=== PATIENT | female | born 1965 | race Caucasian/White ===

== ENCOUNTER 2021-02-12 07:21 | Outpatient (CLI) | payer OTHER, SELFPAY ==
--- NOTE | ~2021-02-12 | MM_ITS ---
EXAMINATION: MM screening deven BI w nicki HISTORY: Screening TECHNIQUE: Craniocaudal and mediolateral oblique 3-D tomosynthesis images were obtained and synthetic 2-D images were generated. CAD analysis was submitted and interpreted. COMPARISON: Comparison to multiple prior studies sequentially, with oldest reviewed study dated 2013. BREAST PARENCHYMAL COMPOSITION: The breasts are heterogenously dense, which may obscure small masses. FINDINGS: There is focal asymmetry laterally in the right breast on CC view. The left breast is stabl e without evidence for malignancy. IMPRESSION: 1. New developing focal asymmetry lateral aspect of the right breast on CC view. 2. Additional mammographic views and possible breast ultrasound are recommended. BI-RADS Category 0: Incomplete: Needs additional imaging evaluation. Reviewed, dictated and finalized at location A. IMPRESSION: 1. New developing focal asymmetry lateral aspect of the right breast on CC view . 2. Additional mammographic views and possible breast ultrasound are recommended . BI-RADS Category 0: Incomplete: Needs additional imaging evaluation.
== END 2021-02-12 07:22 | disposition home or self-care (01) ==
LOC: ANHIMG 07:26
PROVIDERS: PCP Family Medicine; Visit Provider Obstetrics & Gynecology
DX: Z12.31 Encounter for screening mammogram for malignant neoplasm of breast (principal); R92.8 Other abnormal and inconclusive findings on diagnostic imaging of breast
CPT/HCPCS: 77063; 77067

== ENCOUNTER 2021-03-05 11:54 | Outpatient (CLI) | payer OTHER, SELFPAY ==
--- NOTE | ~2021-03-05 | MMUS_ITS ---
EXAMINATION: MM diagnostic mammo unilat RT, US breast RT complete HISTORY: New developing focal asymmetry in the lateral right breast on screening craniocaudal view of 02/2021 TECHNIQUE: Additional 3-D tomosynthesis images of the right breast were performed and synthetic 2-D i mages were generated. CAD analysis was submitted and interpreted. High resolution complete right [address] st ultrasound was performed. COMPARISON: 02/12/2021 bilateral digital screening mammogram FINDINGS: MAMMOGRAPHIC FINDINGS: No reproducible suspicious mass, architectural distortion, malignant constipation, skin thickening or retraction is evident. The heterogeneously dense stroma however may obscure a mass. Complete right breast ultrasound examina tion was performed. ULTRASOUND: Right breast 9:00 near nipple: 3.5 x 4 mm sonolucency with through transmission posterior enhancement consistent with cyst. No suspicious mass or shadowing is detected in the right breast. IMPRESSION: 1. Benign finding 2. Routine mammographic screening is recommended. BI-RADS Category 2: Benign finding(s). Reviewed, dictated and finalized at location A. IMPRESSION: 1. Benign finding 2. Routine mammographic screening is recommended. BI-RADS Category 2: Benign finding(s).
== END 2021-03-05 11:55 | disposition home or self-care (01) ==
PROVIDERS: PCP Family Medicine; Visit Provider Obstetrics & Gynecology
DX: R92.8 Other abnormal and inconclusive findings on diagnostic imaging of breast (principal)
CPT/HCPCS: 76641; 77065

== ENCOUNTER → 2022-12-16 10:28 | Outpatient (CLI) | payer OTHER, SELFPAY ==
--- NOTE | ~2022-12-16 | MM_ITS ---
EXAMINATION: MM screening [facility] BI w nicki HISTORY: Screening mammogram TECHNIQUE: Craniocaudal and mediolateral oblique 3-D tomosynthesis images were obtained and synthetic 2-D images were generated. CAD analysis was submitted and interpreted. COMPARISON: 03/05/2021, 02/12/2021, 04/09/2019 BREAST PARENCHYMAL COMPOSITION: The breasts are heterogeneously dense, which may obscure small masses . FINDINGS: No suspicious mass, calcification, or architectural distortion are identified in either jasmin ast to suggest malignancy. There has been no suspicious interval change. IMPRESSION: 1. No mammographic evidence of malignancy. 2. Recommend routine screening mammography in one year. BI-RADS Category 1: Negative Reviewed, dictated and finalized at location A. RS AND EMULSIFIERS SUPERVISOR
== END ==
PROVIDERS: PCP Family Medicine; Visit Provider Obstetrics & Gynecology
DX: Z12.31 Encounter for screening mammogram for malignant neoplasm of breast (principal)
CPT/HCPCS: 77063; 77067

== ENCOUNTER 2025-06-01 12:45 | Outpatient (CLI) | payer BC, SELFPAY ==
--- OUTSIDE RECORDS SUMMARY | 2025-06-01 12:56 | XMS_ITS | Encounter Summary ---
Author Organization [facility] Address [facility] [place] [address] Care Team Providers Care Construction Site Manager Name Role Phone Ifeoma Christensen OFFSET PLATEMAKER Primary Care Provider [phone]- [phone] Encounter Details Date Type Department Care Team (Latest Contact Info) Description 12/16/2024 [email or web address] Message Enc [facility] [address] [place], [place] [id number] [facility] Provider Diabetic Eye Screening Social History Tobacco Use Types Packs/Day Years Used Date Smoking Tobacco: Never Passive Smoke Exposure: Never Smokeless Tobacco: Never Alcohol Use Standard Drinks/Week Comments Yes 3.3 (1 standard drink = 0.6 oz p ure alcohol) once a month with friends AUDIT-C Answer Date Recorded Frequency of Alcohol Consumption Monthly or less 02/09/2019 Average Number of Drinks 1 or 2 019 Frequency of Binge Drinking Never 10/2018 PHQ-2 Answer Date Recorded Patient Health Questionnaire-2 Score 0 04/15/2024 Comments No Sex and Gender Information Value Date Recorded Sex Assigned at Female 02/09/2019 8:56 AM CDT Legal Sex Female 6:21 PM CDT Gender Identity Female 02/09/2019 8:56 AM CDT Sexual Orientation Straight 02/09/2019 8: 56 AM CDT documented as of this encounter Plan of Treatment Upcoming Encounters Date Type Department Care Team (Late st Contact Info) Description 07/28/2025 8:20 AM CDT Laboratory Only [facility] [address] [facility] [address] [place] [address] Ifeoma Christensen NP [address] [facility] [address] [place] [address] 08/04/2025 8:00 AM CDT Office Visit [facility] Medical [facility] [place] [address] [place] [address] Ifeoma Christensen NP [address] [facility] [address] [place] [address] documented as of this encounter Visit Diagnoses Not on filedocumented in this encounter Care Teams Construction Site Manager Relationship Specialty Start Date End Date Ifeoma Christensen NP [address] [place] [address] PCP - General NURSE PRACTITIONER 04/12/24 documented as of this encounter
--- OUTSIDE RECORDS SUMMARY | 2025-06-01 12:56 | XMS_ITS | Encounter Summary ---
Author Organization [facility] Address [address] [place] [address] Care Team Providers Care Sales Assistant Displays Name Role Phone Ifeoma Christensen REAR LOAD TRUCK DRIVER Primary Care Provider Encounter Details Date Type Department Care Team (Latest Contact Info) Description 06/07/2024 [employer] Message Enc [facility] Medical [facility] [place] [address] [place] [address] Ifeoma Christensen NP [address] [place] [address] painful ingrown big toenail Social History Tobacco Use Types Packs/Day Years [...] AM CDT documented as of this encounter Progress Notes * Gavin Bass - 06/08/2024 10:17 AM CDT Called patient and LVM to schedule acute visit either in person or virtual for abscess. * Gavin Bass - 06/08/2024 10:17 AM CDTFrom: Genet Hogue To: Ifeoma Christensen Sent: 06/07/2024 3:12 PM CDT Subject: painful ingrown big toenail Hello Dr. Christensen, I am prone to minor ingrown toenails in my right big toe. On one other occasion it got sore and swollen enough to require a prescription ointment from my previous PCP. I have one now and the home remedies are not curing it. It is red, swollen, and has some pus. Can you please prescribe an antibiotic? I am happy to pay a co-pay and/or provide a photo if needed. Please let me know. Thank you, Genet Hogue documented in this encounter Plan of Treatment Upcoming Encounters Date Type Department Care Team (Late st Contact Info) Description 07/28/2025 8:20 AM CDT Laboratory Only [facility] Medical [facility] [place] [id number] [facility] [address] [place] [address] Ifeoma Christensen, REAR LOAD TRUCK DRIVER [address] [facility] [address] [place] [address] 08/04/2025 8:00 AM CDT Office Visit [facility] [place] [address] [place] [address] Ifeoma Christensen, REAR LOAD TRUCK DRIVER [address] [facility] [address] [place] [address] documented as of this encounter Visit Diagnoses Not on filedocumented in this encounter Additional Health Concerns Infection Onset Date Last Indicated Resolved Time COVID-19 Rule Out 10/17/2024 10/17/2024 10/19/2024 2:33 PM FIRE APPARATUS SPRINKLER INSPECTOR documented as of this encounter Care Teams Sales Assistant Displays Relationship Specialty Start Date End Date Ifeoma Christensen, REAR LOAD TRUCK DRIVER [address] [facility] [address] [place] [address] PCP - General NURSE PRACTITIONER 04/12/24 documented as of this encounter
--- OUTSIDE RECORDS SUMMARY | 2025-06-01 12:56 | XMS_ITS | Encounter Summary ---
Author Organization [facility] Address [facility] [place] [address] Care Team Providers Care Laborer Cutting Tool Name Role Phone Ifeoma Christensen APPLICATION ADMINISTRATOR Primary Care Provider +[phone]- [phone] Encounter Details Date Type Department Care Team (Latest Contact Info) Description 03/15/2025 [employer] Message Enc [facility] Medical [facility] [place] [address] [place] [address] Ifeoma Christensen APPLICATION ADMINISTRATOR [address] [place], [place] [id number] blood pressure medicine Social History Tobacco Use Types Packs/Day Years [...] 2 019 Frequency of Binge Drinking Never 050 10/2018 PHQ-2 Answer Date Recorded Patient Health Questionnaire-2 Score 0 01/27/2025 Comments No Sex and Gender Information Value Date Recorded Sex Assigned at Female 02/09/2019 8:56 AM CDT Legal Sex Female 6:21 PM CDT Gender Identity Female 02/09/2019 8:56 AM CDT Sexual Orientation Straight 02/09/2019 8: 56 AM CDT documented as of this encounter Plan of Treatment Upcoming Encounters Date Type Department Care Team ( Contact Info) Description 07/28/2025 8:20 AM CDT Laboratory Only [facility] [place] [address] [place] [address] Ifeoma Christensen, APPLICATION ADMINISTRATOR [address] [facility] [address] [place] [address] 08/04/2025 8:00 AM CDT Office Visit [facility] Medical [facility] - [place] [address] [place] [address] Ifeoma Christensen NP [address] [facility] [address] [place] [address] documented as of this encounter Visit Diagnoses Not on filedocumented in this encounter Additional Health Concerns Assessment Noted Time PHQ-9 Depression Total Score: 2 01/28/20 25 8:16 AM CDT documented as of this encounter Care Teams Laborer Cutting Tool Relationship Specialty Start Date End Date Ifeoma Christensen NP [address] [place] [address] PCP - General NURSE PRACTITIONER 04/12/24 documented as of this encounter
--- OUTSIDE RECORDS SUMMARY | 2025-06-01 12:56 | XMS_ITS | Encounter Summary ---
Author Organization [facility] Address [facility] [place] [address] Care Team Providers Care Director Of Assisted Living Name Role Phone Ifeoma Christensen BEAUTY PARLOR CLEANER Primary Care Provider Encounter Details Date Type Department Care Team (Latest Contact Info) Description 01/05/2025 [employer]hart Message Enc [facility] Medical [facility] - [place] [address] [place] [address] Ifeoma Christensen NP [address] [place] [address] CPAP sleep study completed Social History Tobacco Use Types Packs/Day Years [...] Description 07/28/2025 8:20 AM CDT Laboratory Only [facility] Medical [facility] - [place] [address] [facility] [address] [place] [address] Ifeoma Christensen NP [address] [facility] [address] [place] [address] 08/04/2025 8:00 AM CDT Office Visit [facility] Medical [facility] - [place] [address] [facility] [address] [place] [address] Ifeoma Christensen NP [address] [facility] [address] [place] [address] documented as of this encounter Visit Diagnoses Not on filedocumented in this encounter Care Teams Director Of Assisted Living Relationship Specialty Start Date End Date Ifeoma Christensen NP [address] [facility] [address] [place] [address] PCP - General NURSE PRACTITIONER 04/12/24 documented as of this encounter
--- OUTSIDE RECORDS SUMMARY | 2025-06-01 12:56 | XMS_ITS | Encounter Summary ---
Author Organization [employer] Address [address] [place] [address] Care Team Providers Care Solutions Consultant Name Role Phone Unavailable Primary Care Provider Unavailabl e Encounter Details Date Type Department Care Team (Latest Contact Info) Description 11/17/2002 Outpatient Historical HIS [facility] KRYSTLE Lewis, William Leach MD [address] [facility] [address] [place] [address] SCREENING MAMM-MAILG NEOPL-OTHER (Primary Dx) Social History Tobacco Use Types Packs/Day Years Used Date Smoking Tobacco: Never Assessed Comments Unknown Sex and Gender Information Value Date Recorded Sex Assigned at Not on file Legal Sex Female 4:55 AM MEDICAL AUDITOR Gender Identity Not on file Sexual Orientation Not on file documented as of this encounter Plan of Treatment Not on file documented as of this encounter Visit Diagnoses Diagnosis Other screening mammogram- Primary documented in this encounter
--- OUTSIDE RECORDS SUMMARY | 2025-06-01 12:56 | XMS_ITS | Encounter Summary ---
Author Organization [facility] Address [facility] [place] [address] Care Team Providers Care Patient Safety Manager Name Role Phone Ifeoma Christensen [employer]ORTS MARKET[employer] INTERNS[employer]IP Primary Care Provider Encounter Details Date Type Department Care Team (Latest Contact Info) Description 08/23/2024 Kadmon[employer] Message Enc [facility] Medical [facility] Mult[facility] - [place] [address] [place] [address] Ifeoma Christensen [employer] [address] [place], [place] [id number] Fasting blood glucose numbers Social History Tobacco Use Types Packs/Day Years [...] Description 07/28/2025 8:20 AM CDT Laboratory Only [facility] Medical [facility] - [place] [address] [place] [address] Ifeoma Christensen, [employer] [address] [facility] [address] [place] [address] 08/04/2025 8:00 AM CDT Office Visit [facility] Medical [facility] Care - [place] [address] [place] [address] Ifeoma Christensen NP [address] [facility] [address] [place] [address] documented as of this encounter Visit Diagnoses Not on filedocumented in this encounter Additional Health Concerns Infection Onset Date Last Indicated Resolved Time COVID-19 Rule Out 10/17/2024 10/17/2024 10/19/2024 2:33 PM COLLECTIONS PROFESSIONAL documented as of this encounter Care Teams Patient Safety Manager Relationship Specialty Start Date End Date Ifeoma Christensen NP [address] [facility] [address] [place] [address] PCP - General NURSE PRACTITIONER 04/12/24 documented as of this encounter
--- OUTSIDE RECORDS SUMMARY | 2025-06-01 12:56 | XMS_ITS | Encounter Summary ---
Author Organization [facility] Address [facility] [place] [address] Care Team Providers Care Fire Safety Inspector Name Role Phone Ifeoma Christensen KILN TRANSFER OPERATOR Primary Care Provider Encounter Details Date Type Department Care Team (Latest Contact Info) Description 04/26/2024 [employer] Message Enc [facility] Medical Group Mult[facility]pecialty Care - [place] [address] [place] [address] Ifeoma Christensen KILN TRANSFER OPERATOR [address] [place] [address] Nick Social History Tobacco Use Types Packs/Day Years [...] Description 07/28/2025 8:20 AM CDT Laboratory Only [facility] Medical [facility] - [place] [address] [place] [address] Ifeoma Christensen, KILN TRANSFER OPERATOR [address] [facility] [address] [place] [address] 08/04/2025 8:00 AM CDT Office Visit [facility] Medical [facility] - [place] [address] [place] [address] Ifeoma Christensen NP [address] [facility] [address] [place] [address] documented as of this encounter Visit Diagnoses Not on filedocumented in this encounter Additional Health Concerns Infection Onset Date Last Indicated Resolved Time COVID-19 Rule Out 10/17/2024 10/17/2024 10/19/2024 2:33 PM COMPONENT ASSEMBLER SUPERVISOR documented as of this encounter Care Teams Fire Safety Inspector Relationship Specialty Start Date End Date Ifeoma Christensen NP [address] [facility] [address] [place] [address] PCP - General NURSE PRACTITIONER 04/12/24 documented as of this encounter
--- OUTSIDE RECORDS SUMMARY | 2025-06-01 12:56 | XMS_ITS | Encounter Summary ---
Author Organization [facility] Address [facility] [place] [address] Care Team Providers Care Cooling Room Attendant Name Role Phone Ifeoma Christensen PATIENT RESOURCE SPECIALIST Primary Care Provider Encounter Details Date Type Department Care Team (Late st Contact Info) Description 08/05/2024 Ar[employer] Message Enc [facility] Medical Group Mult[facility]pec[facility] Care - [place] [address] [place] [address] Ifeoma Christensen NP [address] [place], [place] [id number] 2 questions Social History Tobacco Use Types Packs/Day Years [...] Description 07/28/2025 8:20 AM CDT Laboratory Only [facility] Medical [facility] - [place] [address] [facility] [address] [place] [address] Ifeoma Christensen PATIENT RESOURCE SPECIALIST [address] [facility] [address] [place] [address] 08/04/2025 8:00 AM CDT Office Visit [facility] Medical [facility] - [place] [address] [facility] [address] [place] [address] Ifeoma Christensen NP [address] [facility] [address] [place] [address] documented as of this encounter Visit Diagnoses Not on filedocumented in this encounter Additional Health Concerns Infection Onset Date Last Indicated Resolved Time COVID-19 Rule Out 10/17/2024 10/17/2024 10/19/2024 2:33 PM STRATEGIC ALLIANCES MANAGER documented as of this encounter Care Teams Cooling Room Attendant Relationship Specialty Start Date End Date Ifeoma Christensen NP [address] [facility] [address] [place] [address] PCP - General NURSE PRACTITIONER 04/12/24 documented as of this encounter
--- OUTSIDE RECORDS SUMMARY | 2025-06-01 12:56 | XMS_ITS | Clinical Summary ---
Author Organization [facility] Address [address] [facility] Attn: Epic Prelude ADT MICHAEL OROZCO [address] Care Team Providers Care Senior Technical Architect Name Role Phone Unavailable Primary Care Provider Unavailabl e Social History Tobacco Use Types Packs/Day Years Used Date Smoking Tobacco: Never Assessed Comments Unknown Sex and Gender Information Value Date Recorded Sex Assigned at Not on file Legal Sex Female 4:55 AM MOBILE PATROL OFFICER Gender Identity Not on file Sexual Orientation Not on file Plan of Treatment Health Maintenance Due Date Last Done Comments DTAP/TDAP/TD VACCINES (1 - Tdap) 1983 HPV/Cotest (21-29) 1985 CERVICAL CANCER SCREENING 1994 HPV/Cotest (30-65) 1994 PAP SMEAR 1994 BREAST CANCER SCREENING 2004 COLORECTAL SCREENING 2009 Colorectal Cancer Screening 2009 FIT-DNA Q 3 years 2009 FIT/FOBT Q 1 year 2009 Flex Sig/CT Colonography Q 5 years 2009 ZOSTER VACCINE (1 of 2) 2014 INFLUENZA VACCINE (#1) 2025 RSV VACCINE (60+ or ) (1 - 1-dose 75+ series) 2039 HEPATITIS B VACCINES Aged Out No long er eligible based on patient's age to complete this topic
--- OUTSIDE RECORDS SUMMARY | 2025-06-01 12:56 | XMS_ITS | Encounter Summary ---
Author Organization [facility] Address [facility] [place] [address] Care Team Providers Care Center Medical Director Name Role Phone Ifeoma Christensen CLINICAL RESEARCH SPECIALIST Primary Care Provider [phone] Encounter Details Date Type Department Care Team (Latest Contact Info) Description 02/09/2025 HomeRunhart Message Enc [facility] Medical Group [facility] - [place] [address] [place] [address] Ifeoma Christensen CLINICAL RESEARCH SPECIALIST [address] [place] [address] CPAP Adjustment Update Social History Tobacco Use Types Packs/Day Years [...] 2 019 Frequency of Binge Drinking Never 0510/2018 PHQ-2 Answer Date Recorded Patient Health Questionnaire-2 [...] Description 07/28/2025 8:20 AM CDT Laboratory Only [facility] [place] [address] [place] [address] Ifeoma Christensen, CLINICAL RESEARCH SPECIALIST [address] [place] [address] 08/04/2025 8:00 AM CDT Office Visit [facility] Medical [facility] Multispecialty Care - [place] [address] [place] [address] Ifeoma Christensen NP [address] [place] [address] documented as of this encounter Visit Diagnoses Not on filedocumented in this encounter Additional Health Concerns Assessment Noted Time PHQ-9 Depression Total Score: 2 01/28/20 25 8:16 AM CDT documented as of this encounter Care Teams Center Medical Director Relationship Specialty Start Date End Date Ifeoma Christensen NP [address] [place] [address] PCP - General NURSE PRACTITIONER 04/12/24 documented as of this encounter
--- OUTSIDE RECORDS SUMMARY | 2025-06-01 12:56 | XMS_ITS | Clinical Summary ---
Author Organization [facility] [address] Address [address] [place] [address] Care Team Providers Care Coal Tram Driver Name Role Phone Ifeoma Christensen NP Primary Care Provider [phone] Allergies Active Allergy Reactions Criticality Noted Date Comments Lisinopril Cough Low 10/29/2016 Dcjlhxe-Ulo-Xbt Reductase Inhibitors Fatigue,Muscle pain Medium 10/29/2016 Medications citalopram (CeleXA) 20 mg tablet Take 1 tablet (20 mg total) by mouth daily Active metFORMIN (GLUCOPHAGE) 1,000 mg tablet Take 1.5 tablets (1,500 mg total) by mouth daily with breakfast Active telmisartan (MICARDIS) 40 mg tablet Take 1 tablet (40 mg total) by mouth daily Active levothyroxine sodium (TIROSINT) 50 mcg capsule Take 1 capsule (50 mcg total) by mouth occ med physician before breakfast Active rosuvastatin (CRESTOR) 5 mg tablet Take 1 tablet (5 mg total) by mouth daily Active hydroCHLOROthia zide (HYDRODIURIL) 12.5 mg tablet TAKE 1 TABLET(12.5 MG) BY MOUTH EVERY MORNING 1 Active tirzepatide (Mounjaro) 10 mg/0.5 mL pen injector injection Inject 0.5 mL (10 mg total) under the skin once a week 5 Active Active Problems Problem Noted Date Diagnosed Date Well woman exam 01/25/2024 Overview (01/30/2025): Lab: Pap:all normal Pcp follows labs Tami:02/2024, WNL Colonoscopy: cologuard due 2024 - PCP to order BMD:due 2024- will move out to 64 Assessment & Plan (01/30/2025 10:45 AM CDT): Pap done. RTO 12m. I will send the results to the portal. If she has not heard in a week, to call the office. Assessment & Plan (01/25/2024 10:31 AM CDT): Pap done. RTO 12m. I will send the results to the portal. If she has not heard in a week, to call the office. Obesity with body mass index 30 or greater 01/03 Hyperlipidemia 01/04/2016 Hypertension 01/04/2016 Type 2 diabetes mellitus 01/04/2016 Thyroid activity decreased 01/04/2016 Encounters Date Type Department Care Team Description 05/16/2025 Results Follow-Up Alejandro Dos Santos [address] [place] [address] [address] [place] [address] Funmi Dejesus MD Diagnostic Mammogram Left W Alber 05/12/2025 9:55 AM CDT - 05/12/2025 11:59 PM CDT Hospital Encounter [facility] Medical Office [address] [address] Abnormal mammogram Discharge Disposition: Discharge to home or self care 05/09/2025 Results Follow-Up Alejandro Dos Santos [address] [place] [id number] Nasreen Marie, GIL Screening Mammogram Bilateral W Alber 05/09/2025 Telephone Alejandro Dos Santos [address] [place] [address] [address] [place] [address] Funmi Dejessu MD additional images 05/05/2025 3:58 PM CDT - 05/05/2025 11:59 PM CDT Hospital Encounter [address] [address] Discharge Disposition: Discharge to home or self care from Last 3 Months Surgical History Surgery Date Site/Laterality Comments GALLBLADDER SURGERY Cholecystotomy - 1994 (Added by [facility] Conv) CYST REMOVAL 10/12/1982 - 10/11/1983 Left Breast Medical History Medical History Date Comments Other specified counseling Patie nt Education - Diabetes - [facility] (Added by [facility]) Dietary counseling and surveillance Patient Education Diabetes Dietary Counseling - [facility] (Added by [employer] Conv) Meniere's disease Family History Medical History Relation Name Comments Heart disease Father Heart Disease - (Added by [facility] Conv) Heart disease Maternal Grandfather Sudden Heart attack Alzheimer's disease Mother Passed a t 83 Hypertension Mother Hypertension - (Added by TW Conv) Thyroid disease Mother Thyroid Diso rder - (Added by [employer] Conv) Cancer Neg Hx no colon, breas t or upholstery repairer cancer no change cmt 01/30/25 Relation Name Status Comments Father Maternal Grandfather Mother Social History Tobacco Use Types Packs/Day Years Used Date Smoking Tobacco: Never Tobacco Cessation:Counseling Given: Not Answered Humiliation, Afraid, Rape, and Kick questionnair e Answer Date Recorded Within the last year, have y ou been afraid of your partner or ex-partner? No 01/30/2025 Within the last year, have y ou been humiliated or emotionally abused in other ways by your partner or ex-partner? No Within the last year, have y ou been kicked, hit, slapped, or otherwise physically hurt by your partner or ex-partner? No 01/30/2025 Within the last year, have y ou been raped or forced to have any kind of sexual activity by your partner or ex-partner? No 01/30/2025 AUDIT-C Answer Date Recorded Q1: How often do you have a drink containing alc ohol? Monthly or less 01/30/2025 Q2: How many drinks containi ng alcohol do you have on a typical day when you are drinking? 1 or 2 01/30/2025 Q3: How often do you have si x or more drinks on one occasion? Never 01/30/2025 PHQ-2 Answer Date Recorded PHQ-2 Total Score 0 01/30/2025 Comments No Sex and Gender Information Value Date Recorded Sex Assigned at Not on file Legal Sex Female 2:29 AM SCHOOL ADMISSIONS REPRESENTATIVE Gender Identity Female 01/25/2024 10:00 PM CDT Sexual Orientation Straight 01/25/2024 10 :00 PM CDT Obstetrics History Para Term AB IAB SAB Ectopic Multiple Livin g Live Births 2 2 2 2 2 Date Outcome GA Total Labor Labor/2nd/3rd Weight Sex Type Anes PTL Beatrice A1 A5 Name Clin 994 Term 4.508 kg (9 lb 15 oz) F Vag-S pont None N Livin g Complications:None Delivery Location:Other 995 Term 3.827 kg (8 lb 7 oz) M Vag-S pont Epidur al N Livin g Complications:None Delivery Location:Other Last Filed Vital Signs Vital Sign Reading Time Taken Comments Blood Pressure 118/64 01/30/2025 10:09 AM CDT Pulse 104 08/16/2019 11:14 AM SCHOOL ADMISSIONS REPRESENTATIVE Temperature - - Respiratory Rate - - Oxygen Saturation 96% 08/16/2019 11: 14 AM SCHOOL ADMISSIONS REPRESENTATIVE Inhaled Oxygen Concentration - - Weight 95.6 kg (210 lb 12.8 oz) 025 10:09 AM CDT Height 165.1 cm (5' 5) 01/30/2025 10:0 9 AM CDT Body Mass Index 35.08 01/30/2025 10:09 AM CDT Plan of Treatment Health Maintenance Due Date Last Done Comments Albumin Creatinine Ratio, Urine 1964 Colon Cancer Screening-Colonoscopy 1964 Hemoglobin A1C 1964 Hepatitis C Screening 1964 eGFR 1964 Dilated Eye Exam 1964 Foot Exam 1964 Hepatitis B Screening 1982 Pneumococcal vaccine <65 (1 of 2 - PCV) 1983 DTaP/Tdap/Td Vaccine (2 - Td or Tdap) 07/20/202406/2014 Influenza Vaccine (#1) 2025 3, 07/15/2022, 07/25/2020 Lipid Panel 01/24/2026 01/24/2025, 08/11/2019 Cervical Cancer Screening 01/30/2026 01/30/2025 Depression Screening 01/30/2026 01/30/2025, 01/25/20 24 Regular Well Visit/Exam 18-64 01/30/2026 01/30/2025, 01/25/2024 Breast Cancer Screening-Mammogram 05/05/2026 05/05/2025, 02/16/2024, 02/12/2021 Zoster Vaccine Completed 08/29/2021, 06/27/2021 Procedures Procedure Name Priority Date/Time Associated Diagnosis Comments DIAGNOSTIC MAMMOGRAM LEFT W ALBER Schedule Routine, Read Routine (OP Routine) 05/12/2025 10:11 AM CDT Abnormal mammogram SCREENING MAMMOGRAM BILATERAL W ALBER Schedule Routine, Read Routine (OP Routine) 05/05/2025 4:09 PM CDT Encounter for screening mammogram for malignant neoplasm of breast PAP AND HPV, REFLEX TO HPV GENOTYPES Routine 01/30/2025 10:44 AM CDT Well woman exam from Last 3 Months or Most Recently Relevant to Health Maintenance Results * Diagnostic Mammogram Left W Alber (05/12/2025 10:11 AM CDT) Anatomical Region Laterality Modality Breast Left Mammography 05/12/2025 10:1 7 AM CDT Impressions 05/12/2025 10:17 AM CDT No mammographic evidence of malignancy in the left breast. The method of initial detection of finding was 3D screening mammography (Sdbt). OVERALL FINAL ASSESSMENT: BI-RADS Category 1: Negative. RECOMMENDATION: Annual screening mammography is recommended. Electronically signed by: Tor Aparicio M.D. Narrative 05/12/2025 10:17 AM CDT EXAMINATION: LEFT UNILATERAL DIGITAL DIAGNOSTIC MAMMOGRAM AND DIGITAL BREAST TOMOSYNTHESIS HISTORY: 59-year-old female recalled from screening mammogram for a left breast asymmetry. COMPARISON: Mammograms dated 05/05/2025, 02/16/2024, and 12/16/2022. TECHNIQUE: Full field and spot compression digital mammographic views of the LEFT breast were performed, including computer aided detection (CAD) and digital breast tomosynthesis (DBT). BREAST PARENCHYMAL COMPOSITION: The breasts are heterogeneously dense, which may obscure small masses. MAMMOGRAM FINDINGS: The asymmetry of concern in the anterior upper left breast on the MLO view effaces with spot compression and represents benign dense breast tissue. There is no suspicious finding in the left breast on mammogram. Funmi Dejesus MD [facility] MAMMO PROCEDURE S Final Result * (ABNORMAL) Screening Mammogram Bilateral W Alber (05/05/2025 4:09 PM CDT) Anatomical Region Laterality Modality Breast Bilateral Mammography Impressions 05/07/2025 10:07 PM CDT Left 1) Asymmetry: Left breast asymmetry in the upper region in the anterior depth. Assessment: 0 - Incomplete. Diagnostic mammogram with possible ultrasound is recommended. Right No evidence of malignancy. OVERALL BI-RADS FINAL ASSESSMENT: 0 - Incomplete: Needs Additional Imaging Evaluation RECOMMENDATION: Recommend left breast diagnostic mammogram with possible ultrasound. Narrative 05/07/2025 10:07 PM CDT EXAMINATION: Screening Mammogram Bilateral W Alber: 05/05/2025 COMPARISON: Relevant prior studies available at the time of interpretation were reviewed, including the most recent mammogram on: 02/16/2024. TECHNIQUE: Mammography was performed with 2D and digital breast tomosynthesis (DBT) images. CAD was utilized. BREAST PARENCHYMAL COMPOSITION: The breasts are heterogeneously dense, which may obscure small masses. FINDINGS: Left 1) Asymmetry: There is an asymmetry seen in the upper region of the left breast in the anterior depth. This finding needs additional imaging evaluation. Right There is no suspicious mass, calcification, or architectural distortion. Funmi Dejesus MD [facility] MAMMO PROCEDURE S Final Result * Pap and HPV, reflex to HPV Genotypes (01/30/2025 10:44 AM CDT) CLINICAL INFORMATION: [employer] [facility] Comment:WELL WOMAN EXAM: CER VICAL CANCER S LMP [employer] [facility] Comment:UNKNOWN Previous Pap [employer] [facility] Comment:NONE GIVEN Prev. Bx [employer] [facility] Comment:NONE GIVEN SOURCE: [employer] [facility] Comment:Cervix, Endocervix Pap, specimen adequacy [employer] [facility] Comment: Satisfactory for evaluation. Endocervical/transformation zone component present. Partially obscuring inflammation HPV interp [employer] [facility] Comment: Cytology Results: Negative for intraepithelial lesion or malignancy. COMMENTS [employer] [facility] Comment: This Pap test has been evaluated with computer assisted technology. Hand Tapper [facility] [place] Comment: BKA, CT(ASCP) CT screening location: [place] [address] Administration MICHAEL Junior [id number] [facility] Comment: EXPLANATORY NOTE: The Pap is a screening test for cervical cancer. It is not a diagnostic test and is subject to false negative and false positive results. It is most reliable when a satisfactory sample, regularly obtained, is submitted with relevant clinical findings and history, and when the Pap result is evaluated along with historic and current clinical information. Human papillomavirus DNA, High Risk E6/E7 Not Detected NOT DETECTED [facility] Comment: Not Detected High Risk HPV types (16,18,31,33,35,39,45,51,52, 56,58,59,66,68) were not detected. Other HPV types which cause anogenital lesions may be present. The significance of the other types of HPV in malignant processes has not been established. Methodology: Real Time PCR Thin prep-Endocervica l 01/30/2025 10:44 AM CDT 01/31/2025 7:47 PM CDT us Funmi Dejesus MD LAB CYTOLOGY ORDERA BLES Final Result [place] [address] [address] MICHAEL [place]div[place] [address] [place] [address] [place] [address] from Last 3 Months or Most Recently Relevant to Health Maintenance Insurance [employer] Care Teams Coal Tram Driver Relationship Specialty Start Date End Date Ifeoma Christensen NP [id number] [place] [address] PCP - General Internal Medicine 11/07/24
--- OUTSIDE RECORDS SUMMARY | 2025-06-01 12:56 | XMS_ITS | Encounter Summary ---
Author Organization [facility] Address [facility] [place] [address] Care Team Providers Care Truss Maker Name Role Phone Ifeoma Christensen TECHNICAL OPERATIONS SPECIALIST Primary Care Provider [phone] Encounter Details Date Type Department Care Team (Late st Contact Info) Description 10/17/2024 [employer] Message Enc [facility] Medical Group Multispecialty Care - [place] [address] [place], [place] [id number] Ifeoma Christensen NP [address] [place], [place] [id number] sinus infection Social History Tobacco Use Types Packs/Day Years [...] Description 07/28/2025 8:20 AM CDT Laboratory Only [facility] Medical [facility] - [place] [address] [place] [address] Ifeoma Christensen TECHNICAL OPERATIONS SPECIALIST [address] [place] [address] 08/04/2025 8:00 AM CDT Office Visit [facility] Medical [facility] - [place] [address] [place] [address] Ifeoma Christensen NP [address] [place] [address] documented as of this encounter Visit Diagnoses Not on filedocumented in this encounter Additional Health Concerns Infection Onset Date Last Indicated Resolved Time COVID-19 Rule Out 10/17/2024 10/17/2024 10/19/2024 2:33 PM VEST BASTER documented as of this encounter Care Teams Truss Maker Relationship Specialty Start Date End Date Ifeoma Christensen NP [address] [place] [address] PCP - General NURSE PRACTITIONER 04/12/24 documented as of this encounter
--- OUTSIDE RECORDS SUMMARY | 2025-06-01 12:56 | XMS_ITS | Encounter Summary ---
Author Organization [facility] Address [facility] [place] [address] Care Team Providers Care Payroll Officer Name Role Phone Ifeoma Christensen EAR MUFF ASSEMBLER Primary Care Provider Encounter Details Date Type Department Care Team (Latest Contact Info) Description 06/23/2024 [employer] Message Enc [facility] Medical Group Multispecialty Care - [place] [address] [place] [address] Ifeoma Christensen EAR MUFF ASSEMBLER [address] [place], [place] [id number] covid and flu vaccines Social History Tobacco Use Types Packs/Day Years [...] 07/28/2025 8:20 AM CDT Laboratory Only [facility] Medical [facility] Multispecialty Care - [place] [address] [place] [address] Ifeoma Christensen, EAR MUFF ASSEMBLER [address] [place] [address] 08/04/2025 8:00 AM CDT Office Visit [facility] Medical [facility] Multispecialty Care - [place] [address] [place] [address] Ifeoma Christensen, TELMA [address] [place] [address] documented as of this encounter Visit Diagnoses Not on filedocumented in this encounter Additional Health Concerns Infection Onset Date Last Indicated Resolved Time COVID-19 Rule Out 10/17/2024 10/17/2024 10/19/2024 2:33 PM STACK CLERK documented as of this encounter Care Teams Payroll Officer Relationship Specialty Start Date End Date Ifeoma Christensen NP [address] [place] [address] PCP - General NURSE PRACTITIONER 04/12/24 documented as of this encounter
--- OUTSIDE RECORDS SUMMARY | 2025-06-01 12:56 | XMS_ITS | Encounter Summary ---
Author Organization [facility] Address [facility] [place] [address] Care Team Providers Care Masking Machine Operator Name Role Phone Ifeoma Christensen COMPUTER NETWORK SPECIALIST Primary Care Provider [phone] Encounter Details Date Type Department Care Team (Late st Contact Info) Description 07/21/2024 [employer] [facility] [place] Message Enc [facility] Medical Group Multispecialty Care - [place] [address] [place] [address] Ifeoma Christensen NP [address] [place], [place] [id number] Jenelle denied? Social History Tobacco Use Types Packs/Day Years [...] as of this encounter Progress Notes * Juju Tillman MA - 07/21/2024 1:35 PM CDTFrom: Genet Gema Lennie To: Ifeoma Christensen Sent: 07/21/2024 12:37 PM CDT Subject: Jenelle denied? I've been getting messages from [facility] that they can't fill this prescription because of insurance questions. Can you appeal? documented in this encounter Plan of Treatment Upcoming Encounters Date Type Department Care Team (Late st Contact Info) Description 07/28/2025 8:20 AM CDT Laboratory Only [facility] Medical [facility] Multispecialty Care - [place] [address] [place] [address] Ifeoma Christensen COMPUTER NETWORK SPECIALIST [address] [place] [address] 08/04/2025 8:00 AM CDT Office Visit [facility] Mult[facility]pecialty Care - [place] [address] [place] [address] Ifeoma Christensen NP [address] [place] [address] documented as of this encounter Visit Diagnoses Not on filedocumented in this encounter Additional Health Concerns Infection Onset Date Last Indicated Resolved Time COVID-19 Rule Out 10/17/2024 10/17/2024 10/19/2024 2:33 PM WEB DEVELOPMENT CONSULTANT documented as of this encounter Care Teams Masking Machine Operator Relationship Specialty Start Date End Date Ifeoma Christensen NP [address] [place] [address] PCP - General NURSE PRACTITIONER 04/12/24 documented as of this encounter
--- OUTSIDE RECORDS SUMMARY | 2025-06-01 12:56 | XMS_ITS | Clinical Summary ---
Author Organization [facility] Address [address] [place] [address] Care Team Providers Care Intelligence Operations Specialist Name Role Phone Ifeoma Christensen WIRE MESH FILTER FABRICATOR Primary Care Provider Allergies Active Allergy Reactions Criticality Noted Date Comments Lisinopril Cough 10/29/2016 Statins Fatigue,Myalgias 10/29/2016 Medications metroNIDAZOLE 1 % gel CONTRERAS TO FACE HS 12 9 Active CPAP MACHINE Active telmisartan 20 MG Tab Take 1 tablet (20 mg total) by mouth daily. 0 Active hydroCHLOROthiazid e (MICROZIDE) 12.5 MG tabletIndications: Edema, unspecified type,Benign essential hypertension Take 1 tablet (12.5 mg total) by mouth every morning. 90 tablet 1 5 Active levothyroxine (SYNTHROID) 50 MCG tabletIndications: Acquired hypothyroidism Take 1 tablet (50 mcg total) by mouth daily. 90 tablet 1 5 Active rosuvastatin (CRESTOR) 5 MG tabletIndications: Mixed hyperlipidemia Take 1 tablet (5 mg total) by mouth nightly at bedtime. Patient is due for appt , no further refills until seen in office or for a virtual visit 90 tablet 2 5 Active citalopram (CELEXA) 20 MG tabletIndications: Depression Take 1 tablet (20 mg total) by mouth daily. 90 tablet 1 5 Active MOUNJARO 10 MG/0.5ML injectionIndicatio ns:Type 2 diabetes mellitus without complication, without long-term current use of insulin ([facility]) ADMINISTER 10 MG UNDER THE SKIN EVERY 7 DAYS FOR DIABETES 2 mL 2 Active Active Problems Problem Noted Date Diagnosed Date Paronychia of toe of left foot due to ingrown to enail 06/08/2024 SANJEEV (generalized anxiety disorder) 04/15/2024 Right hand pain 04/15/2024 Obstructive sleep apnea 08/16/2019 IBS (irritable bowel syndrome) 08/04/2017 GERD (gastroesophageal reflux disease) 7 Depression 05/13/2017 Obesity with body mass index 30 or greater 01/03 Hyperlipidemia 11/26/2015 Type 2 diabetes mellitus ([facility]) 07/28 Benign essential hypertension 07/26/2012 Encounters Date Type Department Care Team Description 05/08/2025 [facility] [address] [facility] [address] [place] [address] Ifeoma Christensen, WIRE MESH FILTER FABRICATOR CPAP still needs tweaked 05/05/2025 Scan [facility] Scanned, [facility] 03/23/2025 Scan [facility] Scanned, [facility] 03/23/2025 [facility] [place] [address] [facility] [address] [place] [address] Ifeoma Christensen, WIRE MESH FILTER FABRICATOR Follow Up Call 03/15/2025 MyChart Message [facility] [place] [address] [facility] [address] [place] [address] Ifeoma Christensen, WIRE MESH FILTER FABRICATOR CPAP adjustment 03/15/2025 [facility] [address] [facility] [address] [place] [address] Ifeoma Christensen, WIRE MESH FILTER FABRICATOR blood pressure medicine 03/14/2025 MyChart Message [facility] [address] [facility] [address] [place] [address] Ifeoma Christensen, WIRE MESH FILTER FABRICATOR [facility] needs electronic refill orders from Last 3 Months Immunizations Immunization Administration Dates Next Due Influenza Adult (Generic) 08/02/2023,07/15/2022, 07/25/2020 PFIZER COVID-19 (12+) MRNA, LNP-S, PF, LEXX-SUCROSE, 30 MCG/0.3 ML (COMIRNATY) 07/18/2024 Pneumococcal (Prevnar 20) 01/27/2025 Shingrix 08/29/2021,06/27/2021 Tdap (Generic) 07/20/2014 Family History Medical History Relation Comments Early Maternal Grandfather heart attac k at 38 Heart Disease Maternal Grandfather Emphysema Maternal Grandmother Arthritis Mother Hypertension Mother Relation Status Comments Maternal Grandfather Maternal Grandmother Mother Social History Tobacco Use Types Packs/Day Years Used Date Smoking Tobacco: Never Passive Smoke Exposure: Never Smokeless Tobacco: Never Tobacco Cessation:Counseling Given: No Alcohol Use Standard Drinks/Week Comments Yes 3.3 [...] Orientation Straight 02/09/2019 8: 56 AM CDT Last Filed Vital Signs Vital Sign Reading Time Taken Comments Blood Pressure 103/72 01/27/2025 8:15 AM CDT Pulse 95 01/27/2025 8:15 AM CDT Temperature 36.4 C (97.6 F) 01/27/2025 8:15 AM CDT Respiratory Rate 18 01/27/2025 8:15 AM CDT Oxygen Saturation 99% 01/27/2025 8:15 AM CDT Inhaled Oxygen Concentration - - Weight 95.5 kg (210 lb 9.6 oz) 01/27/2025 8:15 A M CDT Height 165.1 cm (5' 5) 01/27/2025 8:15 AM CDT Body Mass Index 35.05 01/27/2025 8:15 AM CDT Plan of Treatment Upcoming Encounters Date Type Department Care Team (Late st Contact Info) Description 07/28/2025 8:20 AM CDT Laboratory Only [facility] [place] [address] [place] [address] Ifeoma Christensen, WIRE MESH FILTER FABRICATOR [address] [place] [address] 08/04/2025 8:00 AM CDT Office Visit [facility] Medical [facility] [place] [address] [place] [address] Ifeoma Christensen, WIRE MESH FILTER FABRICATOR [address] [place] [address] Health Maintenance Due Date Last Done Comments Hepatitis C 1982 Cervical Cancer Screening Pap with HPV Testing (Age 30 to 64) Every 5 Years 1994 DTaP, Tdap and Td Vaccines (2 - Td or Tdap) 07/20/2024 07/20/2014 Colorectal Cancer Screening FIT-DNA (3 Years) 05/28/2025 05/28/2022, 05/28/2022, 02/15/2019 Hemoglobin A1C 07/26/2025 01/24/2025, 10/12, 07/15/2024, Additional history exists Cervical Cancer Screening Pap Smear (Age 30 to 64) Every 3 Years 09/22/2025 09/22/2022 Cervical Cancer Screening with HPV 09/22/2025 Kidney Health Evaluation 01/24/2026 01/24/2025 Lipid Panel 01/24/2026 01/24/2025, 10/12, 07/15/2024, Additional history exists Annual Physical 01/27/2026 01/27/2025 Mammogram Screening 02/15/2026 02/16/2024, 02/16/2024, 06/09/2019, Additional history exists Diabetes: Retinopathy Eye Exam 08/16/2026 08/16/2024 RSV Immunization or 60+ Years (1 - 1-dose 75+ series) 2039 Zoster Vaccines Completed 08/29/2021, 06/27/2021 COVID-19 Vaccine Completed 07/18/2024, , 07/15/2022, Additional history exists PHQ-2 (Physician [place]) Completed 01/27/2025 Pneumococcal Vaccine: 50+ Years Completed 01/27/2025 Meningococcal B Vaccine Aged Out No l onger eligible based on patient's age to complete this topic Meningococcal Vaccine Aged Out No michael sundar eligible based on patient's age to complete this topic RSV Immunizations Under 20 Months Aged Out No longer eligible based on patient's age to complete this topic Procedures Procedure Name Priority Date/Time Associated Diagnosis Comments LIPID PANEL Routine 01/24/2025 8:00 AM CDT Mixed hyperlipidemia Type 2 diabetes mellitus with hyperglycemia, without long-term current use of insulin ([facility]) HEMOGLOBIN, GLYCOSYLATED Routine 01/24/2025 8:00 AM CDT Mixed hyperlipidemia Type 2 diabetes mellitus with hyperglycemia, without long-term current use of insulin ([facility]) DIABETIC RETINOPATHY EXAM (NEGATIVE)(SCAN ORDER) Routine 08/16/2024 12:00 AM HANDY WORKER MAMMOGRAM GENERIC (SCAN ORDER) 02/16/2024 COLOGUARD (SCAN ORDER) Routine 05/28/2022 from Last 3 Months or Most Recently Relevant to Health Maintenance Results * (ABNORMAL) HEMOGLOBIN, GLYCOSYLATED (01/24/2025 8:00 AM CDT) HGB A1C 6.0(H) <5.7 % [employer] [facility] Comment: For someone without known diabetes, a hemoglobin A1c value between 5.7% and 6.4% is consistent with prediabetes and should be confirmed with a follow-up test. For someone with known diabetes, a value <7% indicates that their diabetes is well controlled. A1c targets should be individualized based on duration of diabetes, age, comorbid conditions, and other considerations. This assay result is consistent with an increased risk of diabetes. Currently, no consensus exists regarding use of hemoglobin A1c for diagnosis of diabetes for children. 01/24/2025 8:00 AM CDT 01/25/2025 4:44 AM CDT Narrative Resulting Agency Comment Performing Organization Information: Site ID: [id number] Name: [facility] Address: [place] [address] Director: Sri Nicholas MD us Ifeoma Christensen NP LABORATORY Final Resul t [facility] [place] [facility] [id number] [place] [address], * (ABNORMAL) LIPID PANEL (01/24/2025 8:00 AM CDT) CHOLESTEROL 119 <200 mg/dL [facility] HDL 45(L) > OR = 50 mg/dL [facility] TRIGLYCERIDES 182(H) <150 mg/dL [facility] MAZ [facility] LDL (CALCULATED) 48 mg/dL (calc) [facility] Comment: Reference range: <100 Desirable range <100 mg/dL for primary prevention; <70 mg/dL for patients with CHD or diabetic patients with > or = 2 CHD risk factors. LDL-C is now calculated using the Skinny-Lynne calculation, which is a validated novel method providing better accuracy than the Friedewald equation in the estimation of LDL-C. Skinny SS et al. SUMA. 2013;310(19): 5676-2746 (http://education.Swarm.REEL Qualified/faq/HAY103) CHOL/HDL RATIO 2.6 <5.0 (calc) [facility] NON HDL CHOLESTEROL 74 <130 mg/dL (calc) [facility] Comment: For patients with diabetes plus 1 major ASCVD risk factor, treating to a non-HDL-C goal of <100 mg/dL (LDL-C of <70 mg/dL) is considered a therapeutic option. 01/24/2025 8:00 AM CDT 01/25/2025 4:44 AM CDT Narrative Resulting Agency Comment Performing Organization Information: Site ID: [id number] Name: [facility] Address: [place] [address] Director: Sri Nicholas MD Ifeoma Christensen WIRE MESH FILTER FABRICATOR LABORATORY Final Resul t Performing Organization Address City/[facility]/ZIP Co de Phone Number [facility] [address] [place] [address], [place] * DIABETIC RETINOPATHY EXAM (NEGATIVE) (08/16/2024 12:00 AM HANDY WORKER) 08/16/2024 [facility] Scanned SCANNING Final Resul t Performing Organization Address [facility] Co de Phone Number [facility] * MAMMOGRAM GENERIC (SCAN ORDER) (02/16/2024) Anatomical Region Laterality Modality Other 02/16/2024 [facility] Scanned SCANNING Final Resu lt * COLOGUARD (05/28/2022) COLOGUARD NEGATIVE [facility] STOOL 05/28/2022 [facility] Scanned SCANNING Final Resu lt Performing Organization Address City/[facility] Co de Phone Number [facility] from Last 3 Months or Most Recently Relevant to Health Maintenance Insurance [facility] Care Teams Intelligence Operations Specialist Relationship Specialty Start Date End Date Ifeoma Christensen, WIRE MESH FILTER FABRICATOR [address] [place] [address] PCP - General NURSE PRACTITIONER 04/12/24
--- OUTSIDE RECORDS SUMMARY | 2025-06-01 12:56 | XMS_ITS | Encounter Summary ---
Author Organization [employer] [facility] Address [address] [place] [address] Care Team Providers Care Net Developer Consultant Name Role Phone Unavailable Primary Care Provider Unavailabl e Encounter Details Date Type Department Care Team (Latest Contact Info) Description 12/20/2004 Outpatient Historical [facility] KRYSTLE Lewis, William Leach MD [address] [facility] [address] [place] [address] SCREENING MAMM-MAILG NEOPL-OTHER (Primary Dx) Social History Tobacco Use Types Packs/Day Years Used Date Smoking Tobacco: Never Assessed Comments Unknown Sex and Gender Information Value Date Recorded Sex Assigned at Not on file Legal Sex Female 4:55 AM CLINICAL NURSING INTERN Gender Identity Not on file Sexual Orientation Not on file documented as of this encounter Plan of Treatment Not on file documented as of this encounter Visit Diagnoses Diagnosis Other screening mammogram- Primary documented in this encounter
--- OUTSIDE RECORDS SUMMARY | 2025-06-01 12:56 | XMS_ITS | Encounter Summary ---
Author Organization [facility] Address [address] [place] [address] Care Team Providers Care Beater Engineer Helper Name Role Phone Ifeoma Christensen NP Primary Care Provider +1- [phone] Encounter Details Date Type Department Care Team (Late st Contact Info) Description 05/16/2025 Results Follow-Up [facility] [address] [place] [address] [address] [place] [address] Funmi Dejesus MD [address] [place] [address] [address] [place] [address] Diagnostic Mammogram Left W Alber Social History Tobacco Use Types Packs/Day Years Used Date Smoking Tobacco: Never Humiliation, Afraid, Rape, and Kick questionnair e [...] on file Legal Sex Female 2:29 AM INTERNAL SALES Gender Identity Female 01/25/2024 10:00 PM CDT Sexual Orientation Straight 01/25/2024 10 :00 PM CDT documented as of this encounter Miscellaneous Notes * Result Encounter Note - Funmi Dejesus MD - 05/16/2025 1:25 PM CDT Spoke with patient Reviewed her mammogram She reports that the radiologist spoke with her and told her there was nothing to worry about That is what the report I have also says She has been released to yearly mammograms To continue to check the breast If she notices any change to please call and we will arrange for further evaluation The patient voices understanding 05/16/25 Funmi Dejesus MD documented in this encounter Plan of Treatment Not on file documented as of this encounter Visit Diagnoses Not on filedocumented in this encounter Care Teams Beater Engineer Helper Relationship Specialty Start Date End Date Ifeoma Christensen NP [address] [facility] [place] [address] PCP - General Internal Medicine 11/07/24 documented as of this encounter
--- OUTSIDE RECORDS SUMMARY | 2025-06-01 12:56 | XMS_ITS | Encounter Summary ---
Author Organization [facility] Address [address] [place] [address] Care Team Providers Care Insole And Outsole Preparer Name Role Phone Unavailable Primary Care Provider Unavailabl e Encounter Details Date Type Department Care Team (Latest Contact Info) Description 11/23/2002 Outpatient Historical HIS [facility] KRYSTLE Lewis, William Leach MD [address] [facility] [address] [place] [phone] UNSP ABNORMAL MAMMOGRAM (Primary Dx) Social History Tobacco Use Types Packs/Day Years Used Date Smoking Tobacco: Never Assessed Comments Unknown Sex and Gender Information Value Date Recorded Sex Assigned at Not on file Legal Sex Female 4:55 AM INDUSTRIAL GARAGE SERVICER Gender Identity Not on file Sexual Orientation Not on file documented as of this encounter Plan of Treatment Not on file documented as of this encounter Visit Diagnoses Diagnosis Abnormal mammogram, unspecified- Primary documented in this encounter
[2025-06-01 13:33] LABS: Anion Gap 7 mmol/L (4-12); Blood Urea Nitrogen 15 mg/dL (7-17); Calcium 9.2 mg/dL (8.4-10.2); Carbon Dioxide 30 mmol/L (22-30); Chloride 101 mmol/L (98-107); Estimated Glomerular Filt Rate > 60; Glucose 124 mg/dL (65-110); Potassium 3.8 mmol/L (3.4-5.0); Sodium 138 mmol/L (137-145)
== END 2025-06-01 12:46 | disposition home or self-care (01) ==
LOC: ANHSURGERY 12:51
PROVIDERS: PCP Nurse Practitioner; Visit Provider Plastic Surgery
DX: E11.9 Type 2 diabetes mellitus without complications (principal)
CPT/HCPCS: 36415; 80048

== ENCOUNTER 2025-06-05 15:14 | Outpatient (CLI) | payer BC, SELFPAY ==
--- NOTE | ~2025-06-05 | XR_ITS ---
XR hand LT min 3V 06/05/2025 15:32 INDICATION: Left hand pain. Osteoarthritis. PROCEDURE: 3 views left hand COMPARISON: No prior studies for comparison. FINDINGS: Fracture, dislocation or subluxation is not identified. There is mild osteoarthritis of the first carpal metacarpal joint. The soft tissues appear within normal limits. No foreign bodies are identified. IMPRESSION: 1: Mild osteoarthritis first carpal metacarpal joint. Reviewed, dictated and finalized at location O.
--- NOTE | ~2025-06-05 | XR_ITS ---
EXAMINATION: XR hand RT min 3V, 06/05/2025 15:20 CDT HISTORY: M18.0 - Bilateral primary osteoarthritis of first carpome... COMPARISON: No comparisons available. Findings: No acute fracture or malalignment. Minimal degenerative changes, no erosions are identified Soft tissues unremarkable. Impression: No acute fracture or malalignment. Reviewed, dictated and finalized at location A. Impression: No acute fracture or malalignment.
== END 2025-06-05 15:15 | disposition home or self-care (01) ==
LOC: MICIMG 15:16
PROVIDERS: PCP Physician Assistant Surgical; Visit Provider Physician Assistant Surgical
DX: M18.0 Bilateral primary osteoarthritis of first carpometacarpal joints (principal)
CPT/HCPCS: 73130

== ENCOUNTER 2025-06-07 00:45 | Day surgery (SDC) | payer BC, SELFPAY ==
[2025-05-26 09:28] VITALS: BMI 35.4
--- NOTE | 2025-05-26 09:38 | PC.NURSE ---
Report to the Outpatient Waiting Room, entrance under the green pavilion located off [facility], at time _0945__ on date _06/07/25_. Planned Procedure Time: 1145_.? Time changes happen often and if your time is changed the preop area will call you the afternoon before. - You and your visitor will be asked to self-screen and do not enter if you have any COVID symptoms. Please call surgeon if you need to reschedule. - A mask is optional within the hospital at this time. . - No food or drink from midnight until time of surgery and no smoking, or chewing tobacco (or any form of nicotine). No chewing gum, candy or mints. Take only the following medications with a SIP of water on the morning of surgery: __LEVOTHYROXINE DO NOT STOP ANY OF YOUR OTHER PRESCRIPTION MEDICATIONS PRIOR TO SURGERY EXCEPT THE FOLLOWING Hold all vitamins and supplements for 3 days per anesthesiologist. Medications to discontinue per physician Date to take last dose Please no make-up, nail chadian, hairspray, perfume, deodorant, or body powder the day of surgery.? No jewelry (including any body piercings) or valuables the day of surgery, leave them at home.? Please take a shower or bath the night before, or the morning of, surgery with an antibacterial soap.? Wear comfortable, loose fitting clothing.? Children are encouraged to wear pajamas. - Jewelry must be removed prior to entering the operating room.? Rings and piercings that are not removed may be cut off. - The hospital will not accept responsibility for valuables.? - Please leave all valuables, including medications, at home the day of surgery. If you are going home after surgery, a licensed emergency detail driver must drive you home.? - NO public transportation without another adult if you receive anesthesia. - We recommend that an adult stay with you for 24 hours following discharge. - We also recommend that you do not drive, make important decision, drink alcoholic beverages, or take any drugs that were not prescribed by your health care provider for at least 24 hours after your discharge time. For Pediatric surgeries, we recommend two adults accompany the child home. Follow any additional instructions given to you from your surgeon. Telephone instructions given to _MAGGIE__and asked if any additional questions and then verbalized understanding. Patient advised to call surgeon office or pre surgery nurse liaison [phone] if any additional questions.
--- OUTSIDE RECORDS SUMMARY | 2025-06-07 00:47 | XMS_ITS | Encounter Summary ---
Author Organization [employer] [facility] Address [address] [place] [address] Care Team Providers Care Spotter Driver Name Role Phone Unavailable Primary Care Provider Unavailabl e Encounter Details Date Type Department Care Team (Latest Contact Info) Description 11/17/2002 Outpatient Historical HIS [facility] KRYSTLE Lewis, William Leach MD [address] [facility] [address] [place] [address] SCREENING MAMM-MAILG NEOPL-OTHER (Primary Dx) Social History Tobacco Use Types Packs/Day Years Used Date Smoking Tobacco: Never Assessed Comments Unknown Sex and Gender Information Value Date Recorded Sex Assigned at Not on file Legal Sex Female 4:55 AM WOOD POLE TREATER Gender Identity Not on file Sexual Orientation Not on file documented as of this encounter Plan of Treatment Not on file documented as of this encounter Visit Diagnoses Diagnosis Other screening mammogram- Primary documented in this encounter
--- OUTSIDE RECORDS SUMMARY | 2025-06-07 00:47 | XMS_ITS | Encounter Summary ---
Author Organization [facility] Healthcare Address [address] [place] [address] Care Team Providers Care Exercise Physiology Professor Name Role Phone Ifeoma Christensen NP Primary Care Provider +1- [phone] Encounter Details Date Type Department Care Team (Late st Contact Info) Description 05/16/2025 Results Follow-Up [facility] [address] [place] [address] [address] [place] [address] Funmi Dejesus MD [address] [place] [address] [address] [place] [address] Diagnostic Mammogram Left W Alber [...] on file Legal Sex Female 2:29 AM EDITOR SCHOOL PHOTOGRAPH Gender Identity Female 01/25/2024 10:00 PM CDT [...] on filedocumented in this encounter Care Teams Exercise Physiology Professor Relationship Specialty Start Date End Date Ifeoma Christensen NP PCP - General Internal Medicine 11/07/24 documented as of this encounter
--- OUTSIDE RECORDS SUMMARY | 2025-06-07 00:47 | XMS_ITS | Clinical Summary ---
Author Organization [employer] [facility] Address [address] [facility] Attn: Epic Prelude ADT [place] [address] Care Team Providers Care Immersion Metalcleaner Name Role Phone Unavailable Primary Care Provider Unavailabl e Social History Tobacco Use Types Packs/Day Years Used Date Smoking Tobacco: Never Assessed Comments Unknown Sex and Gender Information Value Date Recorded Sex Assigned at Not on file Legal Sex Female 4:55 AM AUTOMATIC BOW MAKER MACHINE TENDER Gender Identity Not on file Sexual Orientation [...]
--- OUTSIDE RECORDS SUMMARY | 2025-06-07 00:47 | XMS_ITS | Encounter Summary ---
Author Organization [facility] Address [address] [place] [address] Care Team Providers Care Spd Manager Name Role Phone Unavailable Primary Care Provider Unavailabl e Encounter Details Date Type Department Care Team (Latest Contact Info) Description 11/23/2002 Outpatient Historical HIS [facility] KRYSTLE Lewis, William Leach MD [address] [facility] [address] [place] [phone] UNSP ABNORMAL MAMMOGRAM (Primary Dx) Social History Tobacco Use Types Packs/Day Years Used Date Smoking Tobacco: Never Assessed Comments Unknown Sex and Gender Information Value Date Recorded Sex Assigned at Not on file Legal Sex Female 4:55 AM DIRECTOR SCHOOL FOR BLIND Gender Identity Not on file Sexual Orientation Not on file documented as of this encounter Plan of Treatment Not on file documented as of this encounter Visit Diagnoses Diagnosis Abnormal mammogram, unspecified- Primary documented in this encounter
--- OUTSIDE RECORDS SUMMARY | 2025-06-07 00:47 | XMS_ITS | Clinical Summary ---
Author Organization [facility] [address] Address [address] [place] [address] Care Team Providers Care Scalloper Name Role Phone Ifeoma Christensen NP Primary Care Provider [phone]- [phone] Allergies Active Allergy Reactions Criticality Noted Date Comments Lisinopril Cough Low 10/29/2016 Ynvuqgh-Wpm-Gxs Reductase Inhibitors Fatigue,Muscle pain Medium 10/29/2016 Medications [...] 1 capsule (50 mcg total) by mouth industrial refrigeration mechanic before breakfast Active rosuvastatin (CRESTOR) 5 mg [...] Description 05/16/2025 Results Follow-Up Alejandro Dos Santos [address] [place] [address] [address] [place] [address] Funmi Dejesus MD Diagnostic Mammogram Left W Alber 05/12/2025 9:55 AM CDT - 05/12/2025 11:59 PM CDT Hospital Encounter [facility] Medical Office [address] [address] Abnormal mammogram Discharge Disposition: Discharge to home or self care 05/09/2025 Results Follow-Up Alejandro Dos Santos [address] [place] [address] [place] [phone] Nasreen Marie, GIL Screening Mammogram Bilateral W Alber 05/09/2025 Telephone Alejandro Dos Santos [address] [place] [address] [address] [place] [address] Funmi Dejesus MD additional images 05/05/2025 3:58 PM CDT - 05/05/2025 11:59 PM CDT Hospital Encounter [address] [address] Discharge Disposition: Discharge to home or self care from Last 3 Months Surgical History Surgery Date Site/Laterality Comments GALLBLADDER SURGERY Cholecystotomy - 1994 (Added by TW Conv) CYST REMOVAL 10/12/1982 - 10/11/1983 Left Breast Medical History Medical History Date Comments Other specified counseling Patie nt Education - Diabetes - [facility] (Added by Conv) Dietary counseling and surveillance Patient Education Diabetes Dietary Counseling - [facility] (Added by Assistera Conv) Meniere's disease Family History Medical History Relation Name Comments Heart disease Father Heart Disease - (Added by TW Conv) Heart disease Maternal Grandfather Sudden Heart attack Alzheimer's disease Mother Passed a t 83 Hypertension Mother Hypertension - (Added by TW Conv) Thyroid disease Mother Thyroid Diso rder - (Added by Assistera Conv) Cancer Neg Hx no colon, breas t or theatrical variety agent cancer no change cmt 01/30/25 Relation Name [...] on file Legal Sex Female 2:29 AM QUALITY CONSULTANT Gender Identity Female 01/25/2024 10:00 PM CDT [...] AM CDT Pulse 104 08/16/2019 11:14 AM QUALITY CONSULTANT Temperature - - Respiratory Rate - - Oxygen Saturation 96% 08/16/2019 11: 14 AM QUALITY CONSULTANT Inhaled Oxygen Concentration - - Weight 95.6 [...] left breast on mammogram. Funmi Dejesus MD [facility] [place]EDURE S Final Result * (ABNORMAL) [...] calcification, or architectural distortion. Funmi Dejesus MD [facility] [place]EDURE S Final Result * Pap and HPV, reflex to HPV Genotypes (01/30/2025 10:44 AM CDT) CLINICAL INFORMATION: [employer] [facility] Comment:WELL WOMAN EXAM: CER VICAL CANCER S LMP [employer] [facility] Comment:UNKNOWN Previous Pap [employer] [facility] Comment:NONE GIVEN Prev. Bx [employer] [facility] Comment:NONE GIVEN SOURCE: [employer] [facility] Comment:Cervix, Endocervix Pap, specimen adequacy [employer] [facility] Comment: Satisfactory for evaluation. Endocervical/transformation zone component present. Partially obscuring inflammation HPV interp [employer] [facility] Comment: Cytology Results: Negative for intraepithelial lesion or malignancy. COMMENTS [employer] [facility] Comment: This Pap test has been evaluated with computer assisted technology. [employer]er Machine [employer] [facility] Comment: BKA, CT(ASCP) CT screening location: [place] [address] Administration MICHAEL Junior [address] Comment [facility] Comment: EXPLANATORY NOTE: The Pap is a [...] High Risk E6/E7 Not Detected NOT DETECTED [facility] Comment: Not Detected High Risk HPV types (16,18,31,33,35,39,45,51,52, 56,58,59,66,68) were not detected. Other HPV types which cause anogenital lesions may be present. The significance of the other types of HPV in malignant processes has not been established. Methodology: Real Time PCR Thin prep-Endocervica l 01/30/2025 10:44 AM CDT 01/31/2025 7:47 PM CDT us Funmi Dejesus MD LAB CYTOLOGY ORDERA BLES Final Result [place] [address] Administration MICHAEL Valdivia [address] [place] [address] [place] [address] from Last 3 Months or Most Recently Relevant to Health Maintenance Insurance [facility] Care Teams Scalloper Relationship Specialty Start Date End Date Ifeoma Christensen NP PCP - General Internal Medicine 11/07/24
--- OUTSIDE RECORDS SUMMARY | 2025-06-07 00:47 | XMS_ITS | Encounter Summary ---
Author Organization [facility] Address [address] [place] [address] Care Team Providers Care Moving Picture Producer Name Role Phone Unavailable Primary Care Provider Unavailabl e Encounter Details Date Type Department Care Team (Latest Contact Info) Description 12/20/2004 Outpatient Historical [facility] KRYSTLE Lewis, William Leach MD [address] [facility] [address] [place] [address] SCREENING MAMM-MAILG NEOPL-OTHER (Primary Dx) Social History Tobacco Use Types Packs/Day Years Used Date Smoking Tobacco: Never Assessed Comments Unknown Sex and Gender Information Value Date Recorded Sex Assigned at Not on file Legal Sex Female 4:55 AM ENTERPRISE SYSTEMS MANAGER Gender Identity Not on file Sexual Orientation Not on file documented as of this encounter Plan of Treatment Not on file documented as of this encounter Visit Diagnoses Diagnosis Other screening mammogram- Primary documented in this encounter
--- NOTE | 2025-06-07 06:57 | WPDHPUPDATE1 ---
History and Physical Update Update Date/Time: 06/07/25 06:57 Patient seen and examined in pre-operative holding area. No interval change in medical history or symptoms. Patient recalls previous discussion of benefits and alternatives to procedure. Continues to desire to proceed with right middle finger cyst excision possible a1 rhianna release and left mucous cyst steroid injection. Reviewed procedure, post-op expectations and risks including but not limited to bleeding, infection, injury to tendon/nerve/vessel, decreased hand function, stiffness, RSD, no change or worsening of symptoms. I discussed the possible use of assistants and their participation in the case. Patient stated understanding and signed the consent form wishing to proceed.
--- NOTE | 2025-06-07 06:58 | P.OP_ITS ---
Procedure Note - Detailed Date of Procedure 06/07/25 Pre-op Diagnosis right middle finger mass,left thumb mucous cyst Post-op Diagnosis Same Procedure Performed right middle finger cyst exicsion and left thumb cyst steroid injection Surgeon Blanquita Umaña MD Data Center Architect roger saha pa-c Anesthesia MAC Description of Procedure INFORMED CONSENT: The patient was seen and examined and marked in the pre-op area.? The patient signed the consent form. PROCEDURE IN DETAIL:The patient taken back to OR on the stretcher in supine position. Time out performed with anesthesia, surgeon and staff agreeing on patient's name site and surgery to be performed SCDs were placed on the lower extremities and inflated. A tourniquet was placed on {right} upper extremity and antibiotics given IV After anesthesia administered sedation I injected {3}cc 1%lido and 0.5% marcaine plain at the operative site The?{right upper extremity}?was prepped and draped in sterile fashion the??{right upper extremity was? exsanguinated with Esmarch bandage proximal to masss and tourniquet inflated to 250mmHg I proceeded with making a oblique incision over the right middle finger cyst just proximal to the MP joint flexion crease through skin and dermis with 15 blade scalpel. Littler scissors were used to spread through subcutaneous tissue down to the cyst. Cyst was identified coming off of the A2 rhianna. I proceeded with using 15 blade scalpel to resect the mass off of the A2 rhianna taking a small section of the proximal 25% of the A2 rhianna with a. I irrigated with normal saline. Ragnell retractor was used withdrawal the FDS and FDP tendons for inspection. The tendons were free of masses and synovitis and gliding smoothly in the sheath. I irrigated with normal saline and closed with 4-0 chromic. A dressing of xeroform, 4x4, juan manuel, and an loly bandage was applied after the tourniquet was let down noting the hand was warm and well perfused. Next, I injected 0.3cc 1%lidocaine plain and 0.7cc Betamethasone 6mg/ml injected into the left thumb cyst under sterile conditions then expressed small amount synovial jelly. The patient was then awaken from anesthesia and transferred to the recovery room in stable condition.? Complications - none EBL- 0cc Disposition - home in stable condition roger saha pa-c was essential for positioning, retraction, closure and dressing placement [facility] Billing Surgery - Charge Forward: Surgery Billing ([id number] for roger)
[2025-06-07 09:08] VITALS: BP 131/78; PULSE 100; RESP 20; TEMP 36.4; O2SAT 100
[2025-06-07] MEDS: ACETAMINOPHEN 500 MG TABLET 1000 MG PO (10:09)
--- NOTE | 2025-06-07 10:19 | P.PNAN_ITS ---
Anes - Initial Pre Proc Eval Procedure: Operation Date: 06/07/25 11:00 Proposed Procedures p Right Middle Finger Mass Excision, Possible A-1 Kaylyn Release Right Middle Finger, Left Thumb Mucous Cyst Steroid Injection - Blanquita Umaña MD Date/Time: 06/07/25 10:19 Surgeon: Blanquita Umaña MD Pre Op Diagnosis: right middle finger mass, middle trigger finger Patient Data Age: 59 Gender: F Height: 1.64 m Weight: 93.7 kg Last Vital Signs Temp 36.4 C 06/07/25 09:08 Pulse 100 06/07/25 09:08 Resp 20 06/07/25 09:08 BP 131/78 06/07/25 09:08 Pulse Ox 100 06/07/25 09:08 O2 Del Method Room Air 06/07/25 09:08 Allergies Allergy/AdvReac Type Severity Reaction Status Date / Time STATINS AdvReac Joint Pain Uncoded 06/07/25 09:15 Home Medications ?Medication ?Instructions ?Recorded ?Confirmed ?Type citalopram 20 mg tablet 20 mg PO HS 05/26/25 5 History hydrochlorothiazide 12.5 mg tablet 12.5 mg PO HS 05/2606/07/25 History levothyroxine 50 mcg tablet 25 mcg PO DAILY 05/26/25 0 06/07/25 History (Synthroid) rosuvastatin 5 mg tablet 5 mg PO HS 05/26/25 06/07/25 History telmisartan 20 mg tablet 20 mg PO HS 05/26/25 5 History tirzepatide 10 mg/0.5 mL 10 mg subcut WEEKLY 05/26/25 06/07/25 History subcutaneous pen injector (Mounjaro) tramadol 50 mg tablet 50 mg PO Q6H PRN pain #12 ta bs 06/07/25 Rx Laboratory Tests 06/07/25 09:49 POC Capillary Glucose 117 H mg/dl (65-105) Patient hx anesthesia problems: other (awake with ETT) Family hx anesthesia problems: none Results Review: All pre-operative results and documents have been reviewed as part of the pre- operative evaluation. [facility] Surgical History Surgical History H/O wisdom tooth extraction History of cholecystectomy H/O breast biopsy Family History Family History Other Acute myocardial infarction Dementia Hypertension Social History Social History Smoking status: Never smoker Alcohol intake: current Alcohol use details: RARE USE Substance use: never Living arrangements: with family Anes - Eval Final PreProcedure Day of Procedure 06/07/25 10:19 Patient weight: obese Heart: regular rate and rhythm Lungs: clear to auscultation Airway: Mallampati scale class III Neurological: alert and oriented Last oral intake: >/= 8 hours ASA classification: III Emergent: no Anesthetic plan: proceed Anesthesia type and monitoring: general GIVS and standard monitoring Results Review: All pre-operative results and documents have been reviewed as part of the pre- operative evaluation. Informed Consent: The patient's anesthetic plan and its attendant risks and benefits were discussed with the patient/family/POA. Questions were solicited and answers provided to the satisfaction of the patient/family/POA.
[2025-06-07] MEDS: ceFAZolin 2 GM in SODIUM CHLORIDE 0.9% IV 50 ML 100 ML IVPB (11:06)
--- NOTE | 2025-06-07 11:09 | S_PTH ---
PATIENT: Genet Hogue LOC: [facility] U#:[id number] AGE/SX: 59/F ROOM: RE06/07/[address]: Blanquita Umaña MD : 1965 BED: DIS: 06/07/2025 SPEC #: [id number] RECD: 06/07/25 12:37 STATUS: MARGIE REQ #: [id number] RITCHIE: 06/07/25 11:[address]: Blanquita Umaña DEPT: [facility] Surgical RECD BY: Pipo Min ENTERED: 06/07/25 12:38 SP TYPE: Surgical OTHR DR: Esther Henderson PA-C Tissues: A - Cyst Procedures: Hematoxylin and Eosin Stain Gross and Microscopic Level 4
[2025-06-07 11:20] VITALS: BP 115/57; PULSE 94; RESP 16; O2SAT 99
[2025-06-07] MEDS: LACTATED RINGERS 1,000 ML 30 ML IV CONT (11:20)
[2025-06-07] MEDS: BETAMETHASONE SODIUM PHOSPHATE PF INJ 6 MG/ML VIAL INFILTRATE (11:21)
[2025-06-07 11:50] VITALS: BP 115/61; PULSE 81; RESP 16; O2SAT 97
[2025-06-07 12:20] VITALS: BP 102/53; PULSE 78; RESP 16
== END 2025-06-07 12:29 | disposition home or self-care (01) ==
PROVIDERS: PCP Physician Assistant Surgical; Visit Provider Plastic Surgery
PROC: (CPT 26055; principal; 2025-06-07 11:00)
DX: M67.442 Ganglion, left hand (principal); M65.331 Trigger finger, right middle finger; M18.0 Bilateral primary osteoarthritis of first carpometacarpal joints; E66.9 Obesity, unspecified; Z68.34 Body mass index [BMI] 34.0-34.9, adult; Z79.891 Long term (current) use of opiate analgesic; Z79.85 Long-term (current) use of injectable non-insulin antidiabetic drugs; Z98.890 Other specified postprocedural states; Z90.49 Acquired absence of other specified parts of digestive tract; Z82.49 Family history of ischemic heart disease and other diseases of the circulatory system
CPT/HCPCS: 26160; 20612; 82948; 88305; J0690; A9270; J0702; J2003; J2704; J3010; J7120